=== PATIENT | male | born 1995 | race Caucasian/White ===

== ENCOUNTER 2020-06-08 07:00 | Outpatient (CLI) | payer MEDICAID | END 2020-06-08 23:59 | disposition home or self-care (01) | LOC: LAB.R 07:00 | PROVIDERS: ATTEND Physician Assistant Medical | DX: R53.83 Other fatigue (principal); R11.2 Nausea with vomiting, unspecified; Z20.828 Contact with and (suspected) exposure to other viral communicable diseases | CPT/HCPCS: 87275; 87276 ==

== ENCOUNTER 2020-06-09 13:35 | Emergency (ER) | payer MEDICAID ==
[2020-06-09 14:11] LABS: BASOPHILS # (AUTO) 0.1 10^3/uL (0.0-0.1); BASOPHILS % (AUTO) 0.6 %; EOSINOPHILS # (AUTO) 0.1 10^3/uL (0.0-0.7); EOSINOPHILS % (AUTO) 1.4 %; HGB - HEMOGLOBIN 16.1 g/dL (14.0-18.0); LYMPHOCYTES # (AUTO) 1.5 10^3/uL (1.5-3.5); LYMPHOCYTES % (AUTO) 14.7 %; MEAN CORPUSCULAR HEMOGLOBIN 28.4 pg (27.0-31.0); MEAN CORPUSCULAR HGB CONC 33.4 g/dL (32.0-36.0); MONOCYTES # (AUTO) 0.5 10^3/uL (0.0-1.0); NEUTROPHILS # (AUTO) 8.1 10^3/uL (1.5-6.6); NEUTROPHILS % (AUTO) 77.7 %; PLT - PLATELET COUNT 325 10^3/uL (130-450); RED BLOOD COUNT 5.67 10^6/uL (4.70-6.10); RED CELL DISTRIBUTION WIDTH 12.5 % (12.0-15.0); WHITE BLOOD COUNT 10.4 x10^3/uL (4.8-10.8)
[2020-06-09] MEDS ORDERED: SODIUM CHLORIDE 0.9% 1,000 ML IV STA (14:23)
[2020-06-09] MEDS ORDERED: ONDANSETRON 4 MG/2 ML VIAL IVP STA (14:23)
[2020-06-09 14:25] LABS: ALBUMIN 4.7 g/dL (3.2-5.5); ALBUMIN/GLOBULIN RATIO 1.5 (1.0-2.2); BILIRUBIN,TOTAL 1.2 mg/dL (0.2-1.0); CALCIUM 9.5 mg/dL (8.5-10.3); CREATININE 0.9 mg/dL (0.6-1.2); TOTAL PROTEIN 7.8 g/dL (6.7-8.2)
--- NOTE | 2020-06-09 14:26 | ED Physician Documentation ---
History of Present Illness - Stated complaint Stated Complaint: NAUSEA - Chief complaint Chief Complaint: Abd Pain - History obtained from History obtained from: Patient - History of Present Illness Timing: Prior to arrival - Additonal information Additional information: 24-year-old male presents to the emergency department for evaluation of about 48 hours nausea, vomiting and diarrhea. He feels fatigued and foggy. He was seen at urgent care yesterday and underwent COVID and influenza testing. Influenza was negative and COVID's test is pending. He has some mild epigastric pain right before he vomits. He denies that he has had any bloody output. No fevers, no cough congestion. Patient reports that he is a vapor and daily cannabis user. He denies alcohol or other illicits Review of Systems Constitutional: reports: Fatigue. denies: Fever, Chills, Myalgias Eyes: reports: Reviewed and negative Ears: denies: Loss of hearing, Ear pain Nose: denies: Rhinorrhea / runny nose, Congestion Throat: denies: Oral lesions / sores, Sore throat Cardiac: reports: Reviewed and negative Respiratory: reports: Reviewed and negative GI: reports: Abdominal Pain, Nausea, Vomiting, Diarrhea, Bloody / black stool, Reviewed and negative. denies: Constipation : denies: Dysuria, Frequency, Hesitancy Skin: reports: Reviewed and negative Musculoskeletal: reports: Reviewed and negative Neurologic: reports: Reviewed and negative PD PAST MEDICAL HISTORY - Past Medical History Past Medical History: Yes Respiratory: Pneumonia - Past Surgical History Past Surgical History: No - Present Medications Home Medications: Ambulatory Orders Medication Instructions Recorded Confirmed Ondansetron Odt [Zofran] 4 mg TL Q6H PRN #10 tablet 06/09/20 - Allergies Allergies/Adverse Reactions: Allergies Allergy/AdvReac Type Severity Reaction Status Date / Time No Known Drug Allergies Allergy Verified 06/09/20 13:46 - Social History Does the pt smoke?: Yes Smoking Status: Current every day smoker Does the pt drink ETOH?: No Substance Use and Type: Marijuana - Immunizations Immunizations are current?: Yes PD ED PE EXPANDED - General General: Alert, No acute distress, Anxious. No: In Pain - Neck Neck: Supple w/out meningeal sx. No: Brudzinki's, Kernig's, Adenopathy, No tenderness, Soft tissue TTP, Limited ROM - Cardiac Cardiac: Regular Rate, Regular Rhythm, Radial strong equal, Pedal strong equal, Cap refill < 2 sec - Respiratory Respiratory: Clear to ausultation nahomi. No: Distress, Labored - Abdomen Abdomen: Normal Bowel sounds. No: Tender to palpation - Derm Derm: Normal color. No: Rash - Extremities Extremities: Normal - Neuro Neuro: Alert and Oriented X 3, CNII-XII intact Results - Vitals Vitals: Vital Signs - 24 hr 06/09/20 06/09/20 06/09/20 13:41 13:58 15:30 Temperature 35.4 C L Heart Rate 89 91 63 Respiratory 18 18 16 Rate Blood Pressure 123/78 137/78 H 121/81 H O2 Saturation 99 100 100 Oxygen O2 Source Room air - Labs Labs: Laboratory Tests 06/09/20 06/09/20 06/09/20 14:00 14:00 15:08 WBC 10.4 RBC 5.67 Hgb 16.1 Hct 48.2 MCV 85.0 MCH 28.4 MCHC 33.4 RDW 12.5 Plt Count 325 MPV 9.0 Neut # (Auto) 8.1 H Lymph # (Auto) 1.5 [place] # (Auto) 0.5 Eos # (Auto) 0.1 Baso # (Auto) 0.1 Absolute Nucleated RBC 0.00 Nucleated RBC % 0.0 Sodium 138 Potassium 3.4 L Chloride 100 L Carbon Dioxide 25 Anion Gap 13.0 BUN 11 Creatinine 0.9 Estimated GFR (MDRD) 104 Glucose 131 H Calcium 9.5 Total Bilirubin 1.2 H AST 36 ALT 46 Alkaline Phosphatase 72 Total Protein 7.8 Albumin 4.7 Globulin 3.1 Albumin/Globulin Ratio 1.5 Lipase 23 Urine Color YELLOW Urine Clarity CLEAR Urine pH 8.5 H Ur Specific [place] 1.020 Urine Protein NEGATIVE Urine Glucose (UA) NEGATIVE Urine Ketones TRACE Urine Occult Blood NEGATIVE Urine Nitrite NEGATIVE Urine Bilirubin NEGATIVE Urine Urobilinogen 0.2 (NORMAL) Ur Leukocyte Esterase NEGATIVE Ur Microscopic Review NOT INDICATED Urine Culture Comments NOT INDICATED PD MEDICAL DECISION MAKING - ED course Complexity details: reviewed results, considered differential, d/w patient, d/w family ED course: 24-year-old male presents the emergency department with about 48 hours of vomiting and diarrhea. Seen yesterday in urgent care clinic and had influenza testing completed which was negative. His COVID testing is pending. On exam today he had no abdominal tenderness elicited. He has essentially unremarkable vital signs without hypotension or tachycardia. Laboratory findings show no significant abnormalities. No leukocytosis. LFTs and renal function preserved. Imaging was deferred given lack of abdominal tenderness or significant laboratory abnormality. Gentleman was given 1 L of IV fluids as well as Zofran in the emergency department with improved symptoms. He is now tolerating p.o.'s. We will discharge him with a prescription for Zofran. At this time my suspicion is that he likely has a viral gastroenteritis. Emergent return precautions discussed Departure - Departure Disposition: Home, Self Care Clinical Impression: Nausea vomiting and diarrhea Condition: Stable Record reviewed to determine appropriate education?: Yes Instructions: ED Diet Brat Expanded Ch, ED Diet Vomiting Diarrhea Prescriptions: Ondansetron Odt [Zofran] 4 mg TL Q6H PRN #10 tablet PRN Reason: Nausea / Vomiting Comments: I hope you are feeling better soon. It sound slike you have the stomach flu. use the zofran at home to help with nausea. Return to the ED if your symptoms worsen, you develop high fevers or suddenly severe abdominal pain
[2020-06-09 15:19] LABS: BILIRUBIN,URINE NEGATIVE (NEGATIVE); GLUCOSE, URINE (UA) NEGATIVE (NEGATIVE); KETONES,URINE (UA) TRACE mg/dL (NEGATIVE); LEUKOCYTE ESTERASE, URINE NEGATIVE (NEGATIVE); NITRITE,URINE NEGATIVE (NEGATIVE); OCCULT BLOOD,URINE NEGATIVE (NEGATIVE); PH,URINE 8.5 PH (5.0-7.5); PROTEIN,URINE NEGATIVE (NEGATIVE); UROBILINOGEN,URINE 0.2 (NORMAL) E.U./dL (NORMAL)
[2020-06-09 15:22] LABS: CLARITY,URINE CLEAR (CLEAR)
[2020-06-09 15:31] VITALS: BP 121/81
== END 2020-06-09 15:56 | disposition home or self-care (01) ==
LOC: ED 13:35
DX: R11.2 Nausea with vomiting, unspecified (principal); R19.7 Diarrhea, unspecified; F17.200 Nicotine dependence, unspecified, uncomplicated
CPT/HCPCS: 36415; 80053; 81001; 81003; 83690; 85025; 87086; 96361; 96374; 99284

== ENCOUNTER 2020-06-10 12:24 | Emergency (ER) | payer MEDICAID ==
[2020-06-10] MEDS ORDERED: ONDANSETRON 4 MG/2 ML VIAL IVP STA (12:29)
[2020-06-10] MEDS ORDERED: SODIUM CHLORIDE 0.9% 1,000 ML IV STA (12:29)
--- NOTE | 2020-06-10 12:42 | ED Physician Documentation ---
History of Present Illness - Stated complaint Stated Complaint: ABD PX, VOMITTING BLOOD - History obtained from History obtained from: Patient - Additonal information Additional information: 24-year-old male returns to the emergency department For evaluation of uncontrolled vomiting and now abdominal pain. He reports that he feels like his stomach is on fire and is having left sided abdominal pain. I saw him for similar yesterday where he reported vomiting, fatigue, and chills for 2 to 3 days. He does have a COVID test pending. In the ER yesterday he was free of abdominal pain and his lab were essentially unremarkable. I suspected that he had a viral enteritis and prescribed Zofran. no imgaing was performed. He reports that since being discharged home has continued to intermittently vomit despite the Zofran prescription. He states that when he vomited this morning there was a little bit of red in it. He is unsure if it was blood but he did eat a red popsicle previously Since being seen no fevers. No dysuria. Denies black or bloody bowel movements. no pertinent psh Pt denies taking rx medication. denies a hx of htn or dm. Pt is a daily cannabis user. Review of Systems Constitutional: denies: Fever, Chills Eyes: reports: Reviewed and negative Ears: reports: Loss of hearing Nose: reports: Reviewed and negative Throat: reports: Reviewed and negative Cardiac: reports: Reviewed and negative Respiratory: reports: Reviewed and negative GI: reports: Abdominal Pain, Nausea, Vomiting. denies: Constipation, Diarrhea, Hematemesis, Bloody / black stool : reports: Reviewed and negative Skin: denies: Rash, Lesions Musculoskeletal: denies: Neck pain, Back pain Neurologic: reports: Reviewed and negative PD PAST MEDICAL HISTORY - Past Medical History Respiratory: Pneumonia - Past Surgical History Past Surgical History: No - Present Medications Home Medications: Ambulatory Orders Medication Instructions Recorded Confirmed Ondansetron Odt [Zofran] 4 mg TL Q6H PRN #10 tablet 06/09/20 Metoclopramide [Reglan] 10 mg PO Q6H PRN #20 tablet 06/10/20 Omeprazole 20 mg PO BID #60 capsule. 06/10/20 - Allergies Allergies/Adverse Reactions: Allergies Allergy/AdvReac Type Severity Reaction Status Date / Time No Known Drug Allergies Allergy Verified 06/10/20 12:34 - Social History Does the pt smoke?: Yes Smoking Status: Current every day smoker Does the pt drink ETOH?: No - Immunizations Immunizations are current?: Yes PD ED PE EXPANDED - General General: Alert, Well developed/nourished, Anxious - HEENT HEENT: PERRL, EOMI - Neck Neck: Supple w/out meningeal sx. No: Adenopathy - Cardiac Cardiac: Regular Rate, Radial strong equal, Pedal strong equal, Cap refill < 2 sec - Respiratory Respiratory: Clear to ausultation nahomi. No: Distress, Labored - Abdomen Abdomen: Epigastric, Left abdomen (midl epigastric and left sided abdominal pain without rebound guarding) - Derm Derm: Normal color. No: Rash - Extremities Extremities: Normal - Neuro Neuro: Alert and Oriented X 3, CNII-XII intact Results - Vitals Vitals: Vital Signs - 24 hr 06/10/20 06/10/20 12:27 12:53 Temperature 36.6 C 36.6 C Heart Rate 88 88 Respiratory 17 17 Rate Blood Pressure 118/85 H 118/85 H O2 Saturation 98 98 Oxygen O2 Source Room air - Labs Labs: Laboratory Tests 06/10/20 06/10/20 06/10/20 12:43 12:43 12:43 WBC 9.1 RBC 5.65 Hgb 16.0 Hct 48.6 MCV 86.0 MCH 28.3 MCHC 32.9 RDW 12.4 Plt Count 336 MPV 9.0 Neut # (Auto) 6.8 H Lymph # (Auto) 1.6 [place] # (Auto) 0.5 Eos # (Auto) 0.1 Baso # (Auto) 0.1 Absolute Nucleated RBC 0.00 Nucleated RBC % 0.0 Sodium 136 Potassium 3.2 L Chloride 99 L Carbon Dioxide 25 Anion Gap 12.0 BUN 13 Creatinine 0.9 Estimated GFR (MDRD) 104 Glucose 125 H Lactic Acid 2.0 Calcium 9.3 Total Bilirubin 1.6 H AST 39 ALT 52 Alkaline Phosphatase 76 Total Protein 8.4 H Albumin 5.0 Globulin 3.4 Albumin/Globulin Ratio 1.5 Lipase 26 - Rads (name of study) CT abd Radiology: Final report received (No acute finding to explain abdominal pain.) PD MEDICAL DECISION MAKING - ED course Complexity details: reviewed old records, reviewed results, re-evaluated patient, considered differential, d/w patient, d/w family ED course: 24-year-old male returns to the emergency department today for evaluation of persistent nausea intermittent vomiting and left-sided abdominal pain. The symptoms have been present now for about 4 to 5 days. He does have COVID-19 screening pending. His labs were evaluated yesterday and found to be unremarkable. Today he continues with no leukocytosis. His potassium is mildly low at 3.2 and was repleted in the emergency department. He did have some left-sided abdominal pain without guarding or rebound. However given that this was the third healthcare encounter for vomiting in the last 72 hours we elected to proceed with a CT scan of the abdomen and pelvis. The CT scan is fairly unremarkable without any findings of gastric perforation cholecystitis or diverticulitis. Normal-appearing appendix. These findings were discussed extensively with the patient and his mom. They admit that he is a habitual pot smoker which may be contributing to the persistent nausea and vomiting. I advised that he abstain from any further pot smoking. There is also concern that he may be developing gastritis as he reports of burning in his stomach. I have advised that he maintain a bland diet and we will start him on a two-week course of omeprazole. I have advised that if his symptoms do not markedly improve he will need referral to a paste plant supervisor and thus should follow-up as soon as possible with a primary care provider to obtain this referral. Departure - Departure Disposition: 01 Home, Self Care Clinical Impression: Abdominal pain Qualifiers: Abdominal location: left upper quadrant Qualified Code(s): R10.12 - Left upper quadrant pain Condition: Stable Record reviewed to determine appropriate education?: Yes Instructions: Abdominal Pain Follow-Up: Claire Esteban ARNP [Primary Care Provider] - Prescriptions: Omeprazole 20 mg PO BID #60 capsule. Metoclopramide [Reglan] 10 mg PO Q6H PRN #20 tablet PRN Reason: Nausea / Vomiting Comments: Maged today the CT scan of your abdomen was unremarkable. Your gallbladder, liver kidneys appendix and intestines did not show any worrisome findings. Your labs today are also fairly unremarkable. It is likely that you are developing gastritis and that is causing the nausea and stomach upset. Habitual pot smoking can also cause persistent nausea and vomiting. I would advise you to abstain from any further cannabis use until your symptoms resolve. I would like you to eat a bland diet, avoid caffeine spicy foods and processed foods. I have prescribed Reglan. This is a medication that should help with nausea. Would also like you to take omeprazole twice a day for the next 2 to 3 weeks. It is important that you schedule very close follow-up with your primary care doctor. In the long-term referral to a paste plant supervisor may be warranted in order to see if your symptoms improve or to determine if further testing is necessary
[2020-06-10] MEDS ORDERED: IOVERSOL 320 100 ML VIAL IVP ONE ×2 (12:44→17:08)
[2020-06-10 12:49] LABS: BASOPHILS # (AUTO) 0.1 10^3/uL (0.0-0.1); BASOPHILS % (AUTO) 0.5 %; EOSINOPHILS # (AUTO) 0.1 10^3/uL (0.0-0.7); EOSINOPHILS % (AUTO) 1.3 %; LYMPHOCYTES # (AUTO) 1.6 10^3/uL (1.5-3.5); LYMPHOCYTES % (AUTO) 17.6 %; MEAN CORPUSCULAR HEMOGLOBIN 28.3 pg (27.0-31.0); MEAN CORPUSCULAR HGB CONC 32.9 g/dL (32.0-36.0); MONOCYTES # (AUTO) 0.5 10^3/uL (0.0-1.0); MONOCYTES % (AUTO) 5.1 %; NEUTROPHILS # (AUTO) 6.8 10^3/uL (1.5-6.6); PLT - PLATELET COUNT 336 10^3/uL (130-450); RED BLOOD COUNT 5.65 10^6/uL (4.70-6.10); RED CELL DISTRIBUTION WIDTH 12.4 % (12.0-15.0); WHITE BLOOD COUNT 9.1 x10^3/uL (4.8-10.8)
[2020-06-10 13:02] LABS: ALBUMIN/GLOBULIN RATIO 1.5 (1.0-2.2); BILIRUBIN,TOTAL 1.6 mg/dL (0.2-1.0); CALCIUM 9.3 mg/dL (8.5-10.3); CREATININE 0.9 mg/dL (0.6-1.2); TOTAL PROTEIN 8.4 g/dL (6.7-8.2)
[2020-06-10] MEDS ORDERED: HYDROmorphone 1 MG/ML CARPUJECT IVP STA (13:05)
[2020-06-10] MEDS ORDERED: POTASSIUM CHLOR 10 MEQ/100 ML 10 MEQ/100 ML BAG IV STA (13:53)
--- NOTE | 2020-06-10 13:59 | CT Report ---
PROCEDURE: Abdomen/Pelvis W INDICATIONS: Abdominal pain, acute, nonlocalized CONTRAST: IV CONTRAST: Optiray 320 ml: 100 PO CONTRAST: *NO PO CONTRAST TECHNIQUE: After the administration of intravenous contrast, 5 mm thick sections acquired from the diaphragms to the symphysis. 5 mm thick coronal and sagittal reformats were acquired. For radiation dose reducti on, the following was used: automated exposure control, adjustment of mA and/or kV according to larissa ent size. COMPARISON: None. FINDINGS: Image quality: Excellent. ABDOMEN: Lung bases: Lung bases are clear. Heart size is normal. Solid organs: Liver and spleen are normal in size and enhancement. Gallbladder is normal. Biliary system is non dilated. Pancreas enhances normally. No adrenal nodules. Kidneys demonstrate normal size and enhancement, without hydronephrosis. Peritoneum and bowel: Bowel loops demonstrate normal wall thickness and caliber. No free fluid or a ir. Nodes and vessels: No retroperitoneal or mesenteric adenopathy by size criteria. Aorta and inferior vena cava are normal in size. Miscellaneous: No ventral hernias. PELVIS: Genitourinary: Bladder wall thickness is normal. Miscellaneous: No inguinal hernias or adenopathy. Bones: No suspicious bony lesions. No vertebral body compression fractures. IMPRESSION: No acute finding to explain abdominal pain. Reviewed by: Alex Mcgill MD on 06/10/2020 1:57 PM PDT Approved by: Alex Mcgill MD on 06/10/2020 1:57 PM PDT Station ID: [id number]
[2020-06-10] MEDS ORDERED: POTASSIUM CHLOR 10 MEQ/100 ML 10 MEQ/100 ML BAG IV SCH (14:00)
[2020-06-10 14:11] LABS: BILIRUBIN,URINE NEGATIVE (NEGATIVE); GLUCOSE, URINE (UA) NEGATIVE (NEGATIVE); KETONES,URINE (UA) 15 mg/dL (NEGATIVE); LEUKOCYTE ESTERASE, URINE NEGATIVE (NEGATIVE); NITRITE,URINE NEGATIVE (NEGATIVE); OCCULT BLOOD,URINE NEGATIVE (NEGATIVE); PH,URINE 7.5 PH (5.0-7.5); PROTEIN,URINE NEGATIVE (NEGATIVE); UROBILINOGEN,URINE 0.2 (NORMAL) E.U./dL (NORMAL)
[2020-06-10 14:12] LABS: CLARITY,URINE CLEAR (CLEAR)
[2020-06-10 14:48] VITALS: BP 133/69
== END 2020-06-10 15:00 | disposition home or self-care (01) ==
LOC: ED 12:24
DX: R10.12 Left upper quadrant pain (principal); F12.90 Cannabis use, unspecified, uncomplicated; F17.200 Nicotine dependence, unspecified, uncomplicated
CPT/HCPCS: 36415; 74177; 80053; 81003; 83605; 83690; 85025; 96361; 96374; 96375; 99284; J1170; Q9967; 81001; 87086

== ENCOUNTER 2020-06-12 12:55 | Emergency (ER) | payer MEDICAID ==
--- NOTE | 2020-06-12 14:49 | ED Physician Documentation ---
PD HPI NVD - Stated complaint Stated Complaint: DIZZINESS/ - Chief complaint Chief Complaint: General - History obtained from History obtained from: Patient - History of Present Illness Timing - onset: How many days ago (3-4) Timing - duration: Days Timing - details: Abrupt onset, Still present, Waxing and waning (Nausea and vomiting for the last 3 to 4 days. Seen here 3 days ago with IV fluids and antiemetics. Discharged on Zofran with out improvement on that. Seen 2 days ago with more fluids and discharged with Reglan. Less nausea but feeling lightheaded and sluggish thought process. Also sore throat.) Associated symptoms: Abdominal pain (intermittent crampy upper abd the past few days and occasionally the past couple of months. Episodic vomiting over the past couple months.), Loss of appetite (for several days). No: Fever, Hematemesis, Weight loss Contributing factors: Other (regular cannibis use, but has not had any the past 4 days.). No: Sick contact, Bad food, Travel, Alcohol use Worsened by: Eating, Position (feeling lightheaded with sitting up.) Similar symptoms before: Has not had sx before Recently seen: Emergency Dept (2 and 3 days ago for nausea and vomiting, with CT abd and labs 2 days ago. Slightly low potassium, otherwise no acute findings.) Review of Systems Constitutional: reports: Myalgias, Fatigue. denies: Fever Nose: denies: Rhinorrhea / runny nose, Congestion Throat: reports: Sore throat Cardiac: denies: Chest pain / pressure Respiratory: denies: Cough GI: reports: Nausea, Vomiting. denies: Hematemesis Neurologic: reports: Generalized weakness, Numbness (having numbness in hands/fingers at times, and noted it in forearm/hand with BP cuff here.). denies: Focal weakness, Altered mental status, Headache PD PAST MEDICAL HISTORY - Past Medical History Respiratory: Pneumonia - Past Surgical History Past Surgical History: No - Present Medications Home Medications: Ambulatory Orders Medication Instructions Recorded Confirmed Ondansetron Odt [Zofran] 4 mg TL Q6H PRN #10 tablet 06/09/20 Metoclopramide [Reglan] 10 mg PO Q6H PRN #20 tablet 06/10/20 Omeprazole 20 mg PO BID #60 capsule. 06/10/20 Cephalexin [Keflex] 500 mg PO TID #20 capsule 06/12/20 Promethazine [Phenergan] 25 mg PO Q6H PRN #20 tab 06/12/20 - Allergies Allergies/Adverse Reactions: Allergies Allergy/AdvReac Type Severity Reaction Status Date / Time No Known Drug Allergies Allergy Verified 06/10/20 12:34 - Living Situation Living Situation: reports: With family Living Arrangement: reports: At home - Social History Does the pt smoke?: Yes Smoking Status: Current every day smoker Does the pt drink ETOH?: No Does the pt have substance abuse?: Yes Substance Use and Type: Marijuana - Immunizations Immunizations are current?: Yes - POLST Patient has POLST: No PD ED PE NORMAL - Vitals Vital signs reviewed: Yes - General General: Alert and oriented X 3, No acute distress, Well developed/nourished - HEENT HEENT: No: Pharynx benign (tonsils with redness and right side with swelling and white exudates/ malodor. ) - Neck Neck: Supple, no meningeal sign, Other (mild anterior adenopathy) - Cardiac Cardiac: RRR, No murmur - Respiratory Respiratory: Clear bilaterally - Abdomen Abdomen: Normal bowel sounds, Soft, Non tender, Non distended - Derm Derm: Normal color, Warm and dry - Neuro Neuro: Alert and oriented X 3, No motor deficit, Normal speech Results - Vitals Vitals: Vital Signs - 24 hr 06/12/20 14:37 Temperature 36.6 C Heart Rate 96 Respiratory 18 Rate Blood Pressure 125/87 H O2 Saturation 98 Oxygen O2 Source Room air - Labs Labs: Laboratory Tests 06/12/20 06/12/20 15:10 15:10 WBC 9.8 RBC 5.64 Hgb 16.2 Hct 46.8 MCV 83.0 MCH 28.7 MCHC 34.6 RDW 12.0 Plt Count 344 MPV 9.1 Neut # (Auto) 7.8 H Lymph # (Auto) 1.3 L [place] # (Auto) 0.6 Eos # (Auto) 0.0 Baso # (Auto) 0.1 Absolute Nucleated RBC 0.00 Nucleated RBC % 0.0 Sodium 137 Potassium 3.5 Chloride 101 Carbon Dioxide 23 Anion Gap 13.0 BUN 12 Creatinine 0.9 Estimated GFR (MDRD) 104 Glucose 105 H Calcium 9.4 Magnesium 2.2 Total Bilirubin 1.9 H AST 33 ALT 46 Alkaline Phosphatase 73 Total Protein 8.2 Albumin 4.9 Globulin 3.3 Albumin/Globulin Ratio 1.5 Lipase 23 PD MEDICAL DECISION MAKING - ED course Complexity details: reviewed old records, re-evaluated patient, considered differential, d/w patient Departure - Departure Disposition: 01 Home, Self Care Clinical Impression: Light-headed feeling, Tonsillitis, Hypokalemia Nausea and vomiting Qualifiers: Vomiting type: unspecified Vomiting Intractability: non-intractable Qualified Code(s): R11.2 - Nausea with vomiting, unspecified Condition: Stable Record reviewed to determine appropriate education?: Yes Instructions: ED Nausea Vomiting Prescriptions: Cephalexin [Keflex] 500 mg PO TID #20 capsule Promethazine [Phenergan] 25 mg PO Q6H PRN #20 tab PRN Reason: Nausea / Vomiting Comments: I think your lightheaded type feeling is a combination of hydration and electrolytes and likely some side effect from your nausea medicine. We can try a different nausea medicine and see if it helps. Hopefully will be improving over the next day or 2 and will need much more. Continue the acid reducing medicine (Prilosec). Use promethazine as needed for nausea. Cephalexin for apparent tonsillitis clinically. Recheck if not improved well over the next several days. Return if worse or persistent.
[2020-06-12] MEDS ORDERED: LACTATED RINGERS 1,000 ML IV STA (15:02)
[2020-06-12] MEDS ORDERED: POTASSIUM CHLOR 10 MEQ/100 ML 10 MEQ/100 ML BAG IV STA (15:03)
[2020-06-12] MEDS ORDERED: FAMOTIDINE 20 MG/2 ML SYRINGE IVP STA (15:04)
[2020-06-12] MEDS ORDERED: PROMETHAZINE INJ 12.5 MG in SODIUM CHLORIDE 0.9% 50 ML IV STA (15:04)
[2020-06-12 15:21] LABS: BASOPHILS # (AUTO) 0.1 10^3/uL (0.0-0.1); BASOPHILS % (AUTO) 0.5 %; EOSINOPHILS % (AUTO) 0.1 %; HGB - HEMOGLOBIN 16.2 g/dL (14.0-18.0); LYMPHOCYTES # (AUTO) 1.3 10^3/uL (1.5-3.5); LYMPHOCYTES % (AUTO) 13.2 %; MEAN CORPUSCULAR HEMOGLOBIN 28.7 pg (27.0-31.0); MEAN CORPUSCULAR HGB CONC 34.6 g/dL (32.0-36.0); MEAN PLATELET VOLUME 9.1 fL (7.4-11.4); MONOCYTES # (AUTO) 0.6 10^3/uL (0.0-1.0); MONOCYTES % (AUTO) 6.5 %; NEUTROPHILS # (AUTO) 7.8 10^3/uL (1.5-6.6); NEUTROPHILS % (AUTO) 79.2 %; PLT - PLATELET COUNT 344 10^3/uL (130-450); RED BLOOD COUNT 5.64 10^6/uL (4.70-6.10); WHITE BLOOD COUNT 9.8 x10^3/uL (4.8-10.8)
[2020-06-12] MEDS ORDERED: PROMETHAZINE 25 MG/1 ML VIAL ONE (15:28)
[2020-06-12 15:29] LABS: ALBUMIN 4.9 g/dL (3.2-5.5); ALBUMIN/GLOBULIN RATIO 1.5 (1.0-2.2); BILIRUBIN,TOTAL 1.9 mg/dL (0.2-1.0); CALCIUM 9.4 mg/dL (8.5-10.3); CREATININE 0.9 mg/dL (0.6-1.2); MAGNESIUM 2.2 mg/dL (1.7-2.8); TOTAL PROTEIN 8.2 g/dL (6.7-8.2)
[2020-06-12] MEDS ORDERED: cephALEXin 250 MG CAPSULE PO STA (16:01)
[2020-06-12 17:43] VITALS: BP 144/96
== END 2020-06-12 17:41 | disposition home or self-care (01) ==
LOC: ED 12:55
DX: J03.90 Acute tonsillitis, unspecified (principal); E87.6 Hypokalemia; R11.2 Nausea with vomiting, unspecified; R42 Dizziness and giddiness; F17.200 Nicotine dependence, unspecified, uncomplicated
CPT/HCPCS: 36415; 80053; 83690; 83735; 85025; 96365; 96367; 96375; 99284; A9270; J7040; J7120

== ENCOUNTER 2020-06-13 15:38 | Emergency (ER) | payer MEDICAID ==
[2020-06-13] MEDS ORDERED: cefTRIAXone 1 GM VIAL IVP STA (17:59)
[2020-06-13] MEDS ORDERED: SODIUM CHLORIDE 0.9% 1,000 ML IV STA (17:59)
[2020-06-13] MEDS ORDERED: LORazepam 2 MG/ML VIAL IVP STA (17:59)
--- NOTE | 2020-06-13 18:08 | ED Physician Documentation ---
History of Present Illness - Stated complaint Stated Complaint: HEADACHE, DIZZINESS - Chief complaint Chief Complaint: Neuro - History obtained from History obtained from: Patient, Family (mother) - History of Present Illness Timing: How many days ago (4) Pain level max: 0 Pain level now: 0 - Additonal information Additional information: Patient is a 24-year-old male who presents to the emergency department with not feeling well for the past 4 days. He states he quit using marijuana approximately 4 days ago. Since that time he has had nausea and vomiting. He had a tooth extracted approximately 4 months ago and is having pain at that site. Has not followed up with a dentist. Has been seen here x2, started on antibiotics for possible tonsillitis. Was also given Reglan and Phenergan for nausea and vomiting. Today he states he feels lightheaded and has blurry vision. Nothing makes it better or worse. Patient also states that he quit vaping approximately 4 days ago. Review of Systems Constitutional: denies: Fever, Chills Respiratory: denies: Dyspnea, Cough GI: reports: Nausea. denies: Vomiting (no vomiting today) : denies: Dysuria, Frequency Skin: denies: Rash PD PAST MEDICAL HISTORY - Past Medical History Respiratory: Pneumonia - Past Surgical History Past Surgical History: No - Present Medications Home Medications: Ambulatory Orders Medication Instructions Recorded Confirmed Ondansetron Odt [Zofran] 4 mg TL Q6H PRN #10 tablet 06/09/20 Metoclopramide [Reglan] 10 mg PO Q6H PRN #20 tablet 06/10/20 Omeprazole 20 mg PO BID #60 capsule. 06/10/20 Cephalexin [Keflex] 500 mg PO TID #20 capsule 06/12/20 Promethazine [Phenergan] 25 mg PO Q6H PRN #20 tab 06/12/20 LORazepam [Ativan] 1 mg PO BID PRN #7 tablet 06/13/20 - Allergies Allergies/Adverse Reactions: Allergies Allergy/AdvReac Type Severity Reaction Status Date / Time No Known Drug Allergies Allergy Verified 06/13/20 15:41 - Social History Does the pt smoke?: Yes Smoking Status: Current every day smoker Does the pt drink ETOH?: No Does the pt have substance abuse?: Yes - Immunizations Immunizations are current?: Yes - POLST Patient has POLST: No PD ED PE NORMAL - Vitals Vital signs reviewed: Yes - General General: Alert and oriented X 3, No acute distress, Well developed/nourished, Other (anxious appearing) - HEENT HEENT: Atraumatic, PERRL, Moist mucous membranes - Neck Neck: Supple, no meningeal sign - Cardiac Cardiac: RRR, Strong equal pulses - Respiratory Respiratory: No respiratory distress, Clear bilaterally - Abdomen Abdomen: Soft, Non tender, Non distended - Derm Derm: Warm and dry, No rash - Extremities Extremities: No edema - Neuro Neuro: Alert and oriented X 3, plush cutter 2-12 intact, No motor deficit, No sensory deficit, Normal speech - Psych Psych: Other (anxious, restless) Results - Vitals Vitals: Vital Signs - 24 hr 06/13/20 06/13/20 06/13/20 15:41 15:48 17:48 Temperature 36.6 C Heart Rate 72 76 70 Respiratory 18 16 16 Rate Blood Pressure 123/83 H 124/82 H 129/68 O2 Saturation 100 99 100 06/13/20 06/13/20 18:44 20:09 Temperature Heart Rate 87 94 Respiratory 20 Rate Blood Pressure 138/73 H 146/78 H O2 Saturation 98 Oxygen O2 Source Room air - Labs Labs: Laboratory Tests 06/13/20 06/13/20 06/13/20 18:16 18:35 19:19 WBC 11.8 H RBC 5.49 Hgb 15.9 Hct 45.8 MCV 83.4 MCH 29.0 MCHC 34.7 RDW 12.0 Plt Count 363 MPV 9.2 Neut # (Auto) 9.6 H Lymph # (Auto) 1.5 [place] # (Auto) 0.7 Eos # (Auto) 0.0 Baso # (Auto) 0.1 Absolute Nucleated RBC 0.00 Nucleated RBC % 0.0 Sodium 140 Potassium 3.1 L Chloride 103 Carbon Dioxide 20 L Anion Gap 17.0 H BUN 11 Creatinine 0.8 Estimated GFR (MDRD) 119 Glucose 87 Calcium 9.1 Phosphorus 2.9 Magnesium 2.0 Total Bilirubin 1.5 H AST 29 ALT 43 Alkaline Phosphatase 73 Total Protein 8.0 Albumin 4.6 Globulin 3.4 Albumin/Globulin Ratio 1.4 Lipase 23 Urine Color YELLOW Urine Clarity CLEAR Urine pH 6.0 Ur Specific [place] 1.025 Urine Protein TRACE Urine Glucose (UA) NEGATIVE Urine Ketones >=80 H Urine Occult Blood TRACE-INTA Urine Nitrite NEGATIVE Urine Bilirubin NEGATIVE Urine Urobilinogen 0.2 (NORMAL) Ur Leukocyte Esterase NEGATIVE Ur Microscopic Review NOT INDICATED Urine Culture Comments NOT INDICATED Urine Opiates Screen NEGATIVE Ur Oxycodone Screen NEGATIVE Urine Methadone Screen NEGATIVE Ur Propoxyphene Screen NEGATIVE Ur Barbiturates Screen NEGATIVE Ur Tricyclics Screen NEGATIVE Ur Phencyclidine Scrn NEGATIVE Ur Amphetamine Screen NEGATIVE U Methamphetamines Scrn NEGATIVE U Benzodiazepines Scrn NEGATIVE Urine Cocaine Screen NEGATIVE U Cannabinoids Screen POSITIVE H PD MEDICAL DECISION MAKING - ED course Complexity details: reviewed old records, reviewed results, re-evaluated patient, considered differential, d/w patient, d/w family ED course: Patient appears to be having anxiety. Given Ativan and symptoms resolved. Also given IV fluids. Tolerating p.o. without difficulty. Given IV Rocephin as well. Recommend that he follow-up with a dentist to exclude osteomyelitis from the jaw. Patient will continue his antibiotics at home. Normal neurological exam. NIH stroke scale is 0. Normal gait. Patient and family counseled regarding signs and symptoms for which I believe and urgent re-evaluation would be necessary. Patient with good understanding of and agreement to plan and is comfortable going home at this time This document was made in part using voice recognition software. While efforts are made to proofread this document, sound alike and grammatical errors may occur. Patient was given Rocephin for the tonsillitis. Departure - Departure Disposition: 01 Home, Self Care Clinical Impression: Anxiety, Light-headed feeling, Tonsillitis Condition: Good Instructions: ED Stress React Follow-Up: Jessica Bland PA-C [Primary Care Provider] - Within 1 week Prescriptions: LORazepam [Ativan] 1 mg PO BID PRN #7 tablet PRN Reason: Anxiety Comments: Follow-up with your doctor for further care. You also need to follow-up with a dentist to check on your tooth. Continue your antibiotics. Do not drive or operate heavy machinery while taking the Ativan. Talk to your doctor about a long-term medication for anxiety. Discharge Date/Time: 06/13/20 20:11
[2020-06-13 18:23] LABS: BASOPHILS # (AUTO) 0.1 10^3/uL (0.0-0.1); BASOPHILS % (AUTO) 0.6 %; EOSINOPHILS % (AUTO) 0.2 %; HGB - HEMOGLOBIN 15.9 g/dL (14.0-18.0); LYMPHOCYTES # (AUTO) 1.5 10^3/uL (1.5-3.5); LYMPHOCYTES % (AUTO) 12.2 %; MEAN CORPUSCULAR HGB CONC 34.7 g/dL (32.0-36.0); MEAN CORPUSCULAR VOLUME 83.4 fL (80.0-94.0); MEAN PLATELET VOLUME 9.2 fL (7.4-11.4); MONOCYTES # (AUTO) 0.7 10^3/uL (0.0-1.0); MONOCYTES % (AUTO) 5.5 %; NEUTROPHILS # (AUTO) 9.6 10^3/uL (1.5-6.6); NEUTROPHILS % (AUTO) 80.9 %; PLT - PLATELET COUNT 363 10^3/uL (130-450); RED BLOOD COUNT 5.49 10^6/uL (4.70-6.10); WHITE BLOOD COUNT 11.8 x10^3/uL (4.8-10.8)
[2020-06-13 18:58] LABS: ALBUMIN 4.6 g/dL (3.2-5.5); ALBUMIN/GLOBULIN RATIO 1.4 (1.0-2.2); BILIRUBIN,TOTAL 1.5 mg/dL (0.2-1.0); CALCIUM 9.1 mg/dL (8.5-10.3); CREATININE 0.8 mg/dL (0.6-1.2); PHOSPHORUS 2.9 mg/dL (2.5-4.6)
[2020-06-13 19:25] LABS: MUDS CUTOFF CONCENTRATIONS CUTOFF CONC BELOW:
[2020-06-13 19:28] LABS: GLUCOSE, URINE (UA) NEGATIVE (NEGATIVE); KETONES,URINE (UA) >=80 mg/dL (NEGATIVE); LEUKOCYTE ESTERASE, URINE NEGATIVE (NEGATIVE); NITRITE,URINE NEGATIVE (NEGATIVE); OCCULT BLOOD,URINE TRACE-INTA (NEGATIVE); PROTEIN,URINE TRACE mg/dL (NEGATIVE); UROBILINOGEN,URINE 0.2 (NORMAL) E.U./dL (NORMAL)
[2020-06-13 19:35] LABS: BILIRUBIN,URINE NEGATIVE (NEGATIVE); CLARITY,URINE CLEAR (CLEAR); ICTOTEST,URINE NEGATIVE
[2020-06-13 19:38] LABS: AMPHETAMINE SCREEN,URINE NEGATIVE (NEGATIVE); BENZODIAZEPINES SCREEN, URINE NEGATIVE (NEGATIVE); COCAINE SCREEN URINE NEGATIVE (NEGATIVE); METHADONE SCREEN, URINE NEGATIVE (NEGATIVE); METHAMPHETAMINES SCREEN, URINE NEGATIVE (NEGATIVE); OPIATE SCREEN, URINE NEGATIVE (NEGATIVE); OXYCODONE SCREEN, URINE NEGATIVE (NEGATIVE); PROPOXYPHENE SCREEN, URINE NEGATIVE (NEGATIVE); TRICYCLIC ANTIDEPRESSANT,URINE NEGATIVE (NEGATIVE)
[2020-06-13 20:09] VITALS: BP 146/78
== END 2020-06-13 20:11 | disposition home or self-care (01) ==
LOC: ED 15:38
DX: J03.90 Acute tonsillitis, unspecified (principal); K13.79 Other lesions of oral mucosa; F41.9 Anxiety disorder, unspecified; R42 Dizziness and giddiness; F17.200 Nicotine dependence, unspecified, uncomplicated
CPT/HCPCS: 36415; 80053; 80306; 81003; 83690; 83735; 84100; 85025; 96361; 96374; 96375; 99283; 99284; J2060; 81001; 87086

== ENCOUNTER 2020-06-16 11:32 | Outpatient (CLI) | payer MEDICAID | END 2020-06-16 11:33 | disposition home or self-care (01) | LOC: LAB 11:32 | PROVIDERS: ATTEND Internal Medicine | DX: R11.2 Nausea with vomiting, unspecified (principal) | CPT/HCPCS: 36415; 83516 ==